=== PATIENT | male | born 1955 | race American Indian/Alaskan Native ===

== ENCOUNTER 2016-11-09 09:20 | Day surgery (SDC) | payer MEDICARE ==
[2016-11-09 09:58] VITALS: BP 170/97
[2016-11-09 10:35] LABS: Hematocrit 30.6 % (35.5-45.6); Mean Corpuscular HGB Conc 33 % (32-34); Mean Corpuscular Hemoglobin 27 pg (28-32); Mean Corpuscular Volume 83 fl (84-94); Red Blood Count 3.68 M/mm3 (3.65-5.03); Red Cell Distribution Width 17.2 % (13.2-15.2)
[2016-11-09 10:46] LABS: INR 1.56 (0.87-1.13); Partial Thromboplastin Time 28.7 Sec. (24.2-36.6)
[2016-11-09 10:58] LABS: Platelet Count 34 K/mm3 (140-440)
--- NOTE | 2016-11-09 12:15 | Ultrasound Report ---
ULTRASOUND ABDOMEN LIMITED HISTORY: Cirrhosis, ascites. FINDINGS: Transabdominal ultrasound was performed in all 4 quadrants of the abdomen. There is trace ascites in the left lower quadrant. No collection large enough for ultrasound guided paracentesis is demonstrated. The liver is partially imaged and appears echogenic consistent with cirrhosis. IMPRESSION: Trace ascites. No collection large enough for ultrasound guided paracentesis.
[2016-11-09 12:16] LABS: Anisocytosis 1+; Blastocytes % (Manual) 0 %; Diff Status Complete; Hypochromasia 1+; Platelet Estimate Appears Decreased
== END 2016-11-09 11:53 | disposition home or self-care (01) ==
LOC: OPU 09:20
PROVIDERS: ATTEND Internal Medicine Gastroenterology
DX: K74.60 Unspecified cirrhosis of liver (principal); R18.8 Other ascites
CPT/HCPCS: 36415; 76705; 85007; 85025; 85610; 85730

== ENCOUNTER 2016-11-15 12:42 | Outpatient (CLI) | payer MEDICARE ==
[2016-11-15 13:24] LABS: Albumin/Globulin Ratio 0.9 %; BUN/Creatinine Ratio 8.66; Bilirubin,Total 1.2 mg/dL (0.1-1.2); Calcium 7.8 mg/dL (8.4-10.2); Chloride 105.9 mmol/L (98-107); Potassium 4.1 mmol/L (3.6-5.0); Total Protein 6.3 g/dL (6.3-8.2)
== END 2016-11-15 12:43 | disposition home or self-care (01) ==
LOC: LAB 12:42
PROVIDERS: ATTEND Internal Medicine Gastroenterology
DX: B20 Human immunodeficiency virus [HIV] disease (principal); B18.2 Chronic viral hepatitis C
CPT/HCPCS: 36415; 80053

== ENCOUNTER 2016-11-20 14:08 | Outpatient (CLI) | payer MEDICARE ==
--- NOTE | 2016-11-20 16:51 | Cat Scan Report ---
CT ABDOMEN AND PELVIS WITH CONTRAST INDICATION: Cirrhosis of liver. COMPARISON: 06/03/2015 CT. FINDINGS: Abdomen and pelvis CT performed following oral contrast and intravenous administration of 100 cc of Omnipaque 300. LUNG BASES: Mild cardiomegaly, small right middle lobe calcified granuloma with scarring and minimal coronary calcification again noted. Nonspecific distal esophageal wall thickening, not excluded for varices versus gastroesophageal reflux and/or hiatal hernia, amongst others. ABDOMEN: New small perihepatic ascites with some fluid also extending along the paracolic gutters noted. Cirrhosis, cholecystectomy clips, tiny splenic calcified granuloma and small nonobstructing bilateral renal calculi, the larger on the right approximately 5 mm on axial image 33, series 2 again noted. Spleen approximately 17 cm in length. Pancreas, adrenals, nonaneurysmal abdominal aorta with atherosclerotic calcifications and IVC remain within normal limits. Multiple mesenteric lymph nodes again noted measuring up to 1.7 x 0.8 cm, axial image 40, series 2 while the largest aortocaval lymph node is again approximately 1.4 cm, axial image 45. Opacified GI tract nonobstructive. Normal appendix. Diffuse wall thickening along the ascending colon now suspected despite suboptimal distention. Interval umbilical/supraumbilical ventral hernia mesh repair as well with approximately 8mm subcutaneous density noted at the superior aspect of this repair, axial image 48. PELVIS: Small simple pelvic ascites is also new. Pelvic lymph nodes are smaller/less prominent. Urinary bladder, seminal vesicles, prostate and rectosigmoid appear within normal limits. Numerous pelvic phleboliths. Fluid in the left inguinal canal hernia is new as on axial image 86, amongst others. Advanced bilateral hip degenerative changes again noted as also bony demineralization. Stable left groin surgical clip. CONCLUSION: 1. Small perihepatic and pelvic ascites is new since May 2015 in this patient with cirrhosis and portal hypertension again noted, as detailed above. 2. Diffuse ascending colon wall thickening/colitis without evidence of bowel obstruction. 3. Various other stable findings, including distal esophageal thickening, old healed granulomatous disease, cholecystectomy, nonobstructing bilateral nephrolithiasis, advanced bilateral hip degenerative changes and interval ventral hernia repair, amongst others, as detailed above. I phoned the above results to Dr. Cardoso, 4:45 PM, 11/20/2016. Thank you for the opportunity to participate in this patient's care.
== END 2016-11-20 14:09 | disposition home or self-care (01) ==
LOC: CT 14:08
PROVIDERS: ATTEND Surgery
DX: N20.0 Calculus of kidney (principal); I51.7 Cardiomegaly; I25.10 Atherosclerotic heart disease of native coronary artery without angina pectoris; K21.9 Gastro-esophageal reflux disease without esophagitis; K44.9 Diaphragmatic hernia without obstruction or gangrene; K40.90 Unilateral inguinal hernia, without obstruction or gangrene, not specified as recurrent; R18.8 Other ascites; I87.8 Other specified disorders of veins; Z90.49 Acquired absence of other specified parts of digestive tract
CPT/HCPCS: 74177; Q9967

== ENCOUNTER 2016-12-26 10:21 | Day surgery (SDC) | payer MEDICARE ==
[~2016-12-26 10:21] MED LIST: LACTATED RINGERS 1,000 ML IV SCH; PEPCID PO NR; VERSED IV NR
[2016-12-26] MEDS ORDERED: DIPRIVAN 10 MG/ML IV ONE ×2 (10:40→12:05)
[2016-12-26] MEDS ORDERED: DILAUDID ONE (10:40)
[2016-12-26] MEDS ORDERED: ANCEF/STERILE WATER 2 GM/20 ML IV NR (11:00)
[2016-12-26 11:20] LABS: Hematocrit 33.1 % (35.5-45.6); Hemoglobin 10.6 gm/dl (11.8-15.2); Mean Corpuscular HGB Conc 32 % (32-34); Mean Corpuscular Volume 80 fl (84-94); Red Blood Count 4.13 M/mm3 (3.65-5.03); Red Cell Distribution Width 18.4 % (13.2-15.2)
[2016-12-26 11:22] LABS: Mean Corpuscular Hemoglobin 26 pg (28-32); White Blood Count 2.3 K/mm3 (4.5-11.0)
[2016-12-26 11:30] LABS: INR 1.45 (0.87-1.13)
[2016-12-26 11:34] LABS: Alanine Aminotransferase 27 units/L (7-56); Albumin 3.7 g/dL (3.9-5); Albumin/Globulin Ratio 1.2 %; Alkaline Phosphatase 115 units/L (35-129); Anion Gap 16 mmol/L; Bilirubin,Total 0.8 mg/dL (0.1-1.2); Blood Urea Nitrogen 13 mg/dL (9-20); Calcium 8.4 mg/dL (8.4-10.2); Carbon Dioxide 24 mmol/L (22-30); Chloride 103.2 mmol/L (98-107); Glucose 94 mg/dL (75-100); Potassium 3.5 mmol/L (3.6-5.0); Sodium 140 mmol/L (137-145); Total Protein 6.8 g/dL (6.3-8.2)
[2016-12-26 12:10] LABS: Anisocytosis 1+; Basophils % (Manual) 0 % (0.0-1.8); Blastocytes % (Manual) 0 %; Hypochromasia 1+
[2016-12-26 12:11] LABS: Diff Status Complete
[2016-12-26 12:24] LABS: Platelet Count 34 K/mm3 (140-440)
[2016-12-26 15:36] VITALS: BP 131/84
--- NOTE | 2016-12-27 01:17 | Discharge Summary ---
This is a well case to me, is a known case of HIV positive and diabetes. He presented because of left inguinal hernia. I saw him about 3-4 weeks ago because of Left ing pain and a soft mass. The patient came today for definitive surgical intervention. PHYSICAL EXAMINATION: GENERAL: Showed a well-preserved black male. He was in no distress. HEAD AND NECK: Negative. CHEST: Clear. HEART: Sounds normal to me. ABDOMEN: Soft and benign. Evidence of left inguinal soft tissue mass that is easily reducible that measured about 8 x 4 x 4 cm. EXTREMITIES: Showed no evidence of any edema. IMPRESSION: Left inguinal hernia. I believe this needs to be addressed surgically; however, we did on him some workup. His white count was 2.6 and his platelet was 34,000. His INR is 1.45. With the above-mentioned findings and the fact that he is HIV positive, my recommendation was to cancel the operation and have him to see pizza cook. We will give him _ phone number to see him sometime tomorrow or whenever he is cleared who will do his surgery. surgery will be done as an elective operation to call me. JOB# [id number] [facility]
== END 2016-12-26 13:04 | disposition home or self-care (01) ==
LOC: OR 10:21
PROVIDERS: ATTEND Surgery
DX: K40.90 Unilateral inguinal hernia, without obstruction or gangrene, not specified as recurrent (principal); Z53.8 Procedure and treatment not carried out for other reasons; E11.9 Type 2 diabetes mellitus without complications; F17.210 Nicotine dependence, cigarettes, uncomplicated
CPT/HCPCS: 36415; 80053; 85007; 85025; 85610; J2250; J2704; J7120; J0690; J1170

== ENCOUNTER 2017-01-30 10:04 | Day surgery (SDC) | payer MEDICARE ==
[~2017-01-30 10:04] MED LIST changes: -LACTATED RINGERS 1,000 ML IV SCH; +NACL 0.9% 1000 ML 1,000 ML IV SCH
[2017-01-30] MEDS ORDERED: ANCEF/STERILE WATER 2 GM/20 ML IV NR (11:00)
[2017-01-30] MEDS ORDERED: DIPRIVAN 10 MG/ML IV ONE (11:13)
[2017-01-30] MEDS ORDERED: ROBINUL ONE (11:14)
[2017-01-30] MEDS ORDERED: NEOSTIGMINE ONE (11:14)
[2017-01-30] MEDS ORDERED: XYLOCAINE MPF 2% ONE (11:14)
[2017-01-30] MEDS ORDERED: DILAUDID ONE (11:14)
[2017-01-30] MEDS ORDERED: ZEMURON IV ONE (11:15)
--- NOTE | 2017-01-30 11:23 | Anesthesia Day of Surgery ---
Anesthesia Day of Surgery - Day of Surgery Patient Examined: Yes Patient H&P Reviewed: Yes Patient is NPO: Yes Beta Blockers: No Cardiac Clearance: No Pulmonary Clearance: No
--- NOTE | 2017-01-30 11:25 | Anesthesia Consultation ---
Anesthesia Consult and Med Hx Date of service: 01/30/17 - Airway Anesthetic Teeth Evaluation: Poor ROM Head & Neck: Adequate Mental/Hyoid Distance: Adequate Mallampati Class: Class II Intubation Access Assessment: Probably Good - Pulmonary Exam CTA: Yes - Cardiac Exam Cardiac Exam: RRR - Pre-Operative Health Status ASA Pre-Surgery Classification: ASA4 - Pulmonary Hx Smoking: Yes (1/2 PPD X 50 YRS) Hx Sleep Apnea: Yes (no longer uses cpap) - Cardiovascular System Hx Hypertension: Yes Hx Cardia Arrhythmia: No - Central Nervous System Hx Psychiatric Problems: Yes - Gastrointestinal Hx Gastroesophageal Reflux Disease: Yes (Mild) - Endocrine Hx Cirrhosis: Yes Hx Liver Disease: Yes (CIRRHOSIS HEP B HEP C) Hx Non-Insulin Dependent Diabetes: No Hx Thyroid Disease: No - Hematic Hx Anemia: Yes - Other Systems Hx Alcohol Use: Yes (ETOH ABUSE/QUIT 1 1/2 YRS AGO) Hx Substance Use: Yes (marijuana) Hx Cancer: No - Additional Comments Anesthesia Medical History Comments: AIDS with hx decres plts---need repeat labs
[2017-01-30 12:08] LABS: Eosinophils % (Auto) 9.1 % (0.0-4.3)
[2017-01-30 12:25] LABS: Hematocrit 37.9 % (35.5-45.6); Hemoglobin 12.1 gm/dl (11.8-15.2); Mean Corpuscular HGB Conc 32 % (32-34); Mean Corpuscular Hemoglobin 26 pg (28-32); Mean Corpuscular Volume 81 fl (84-94); Platelet Count 53 K/mm3 (140-440); Red Blood Count 4.66 M/mm3 (3.65-5.03); Red Cell Distribution Width 18.6 % (13.2-15.2); White Blood Count 3.8 K/mm3 (4.5-11.0)
[2017-01-30 12:26] LABS: Basophils % (Auto) 1.3 % (0.0-1.8); Diff Status Complete
[2017-01-30 12:31] LABS: Albumin 3.9 g/dL (3.9-5); Albumin/Globulin Ratio 1.1 %; BUN/Creatinine Ratio 8.66; Bilirubin,Total 1.1 mg/dL (0.1-1.2); Calcium 8.8 mg/dL (8.4-10.2); Chloride 103.3 mmol/L (98-107); Total Protein 7.3 g/dL (6.3-8.2)
[2017-01-30 12:35] LABS: INR 1.6 (0.87-1.13)
[2017-01-30 12:36] LABS: Partial Thromboplastin Time 27.7 Sec. (24.2-36.6)
[2017-01-30 12:59] LABS: Potassium 4.2 mmol/L (3.6-5.0)
[2017-01-30 13:00] LABS: Bilirubin,Direct 0.3 mg/dL (0-0.2); Bilirubin,Indirect 0.8 mg/dL
[2017-01-30 13:43] VITALS: BP 144/90
--- NOTE | 2017-01-31 02:46 | Consultation ---
HISTORY OF PRESENT ILLNESS: This man is very well known case to me. He was in this hospital about 2 weeks ago for repair of left inguinal hernia. He had an umbilical hernia repaired laparoscopically about 6 months ago. He is a known case of COPD. He does smoke about 1 pack a day. He has been having some pain to the left inguinal area and was found to have a hernia there about 3 x 3 cm. He was admitted 10 days ago for repair of the hernia; however, because of the platelets being low in the range of 30,000-40,000, recommendation was not to do it. At this time, he came for definitive surgical intervention. His white count was 3.8, hematocrit 37. His potassium 4.2, BUN was 13. Total bilirubin was 1.1. The alkaline phosphatase is okay. Noted, however, that his INR is 1.6 with a proTime of 19 and PTT is 27.7. I had a lengthy talk with the patient as to the operation. I believe, surgically speaking, the advice is not to do surgery on him with the elevated INR and the platelets being on the low side, 53 only. Although he saw Dr. Ayush Pritchard recently. I would like him to see him again, ____ okay to do his surgery. He has some pain in the area. To me the hernia is not that large, about 3 x 3 cm and looked soft to me. I will rather wait to make sure that everything is fine before intervention. Add to this that he has COPD and this would affect the healing process as well. JOB# [id number] [facility]
== END 2017-01-30 13:22 | disposition home or self-care (01) ==
LOC: OR 10:04
PROVIDERS: ATTEND Surgery
DX: K40.90 Unilateral inguinal hernia, without obstruction or gangrene, not specified as recurrent (principal); Z53.8 Procedure and treatment not carried out for other reasons; J44.9 Chronic obstructive pulmonary disease, unspecified; F17.210 Nicotine dependence, cigarettes, uncomplicated; I10 Essential (primary) hypertension; K21.9 Gastro-esophageal reflux disease without esophagitis; B19.20 Unspecified viral hepatitis C without hepatic coma; D64.9 Anemia, unspecified; F12.90 Cannabis use, unspecified, uncomplicated; Z72.89 Other problems related to lifestyle
CPT/HCPCS: 36415; 80048; 80074; 85025; 85610; 85730; J1170; J2250; J2704; J7030; J0690; J2710

== ENCOUNTER 2017-05-21 13:01 | Outpatient (CLI) | payer MEDICARE ==
[2017-05-21 13:27] LABS: Basophils % (Auto) 0.1 % (0.0-1.8); Eosinophils % (Auto) 1.3 % (0.0-4.3); Hematocrit 37.5 % (35.5-45.6); Hemoglobin 12.4 gm/dl (11.8-15.2); Mean Corpuscular HGB Conc 33 % (32-34); Mean Corpuscular Hemoglobin 29 pg (28-32); Mean Corpuscular Volume 88 fl (84-94); Red Blood Count 4.27 M/mm3 (3.65-5.03); Red Cell Distribution Width 18.9 % (13.2-15.2); White Blood Count 13.3 K/mm3 (4.5-11.0)
[2017-05-21 13:28] LABS: Platelet Count 99 K/mm3 (140-440)
[2017-05-21 13:43] LABS: INR 1.53 (0.87-1.13)
[2017-05-21 13:47] LABS: Albumin 3.8 g/dL (3.9-5); Albumin/Globulin Ratio 0.9 %; BUN/Creatinine Ratio 9.33; Chloride 94.1 mmol/L (98-107); Total Protein 8.1 g/dL (6.3-8.2)
== END 2017-05-21 13:02 | disposition home or self-care (01) ==
LOC: LAB 13:01
DX: B20 Human immunodeficiency virus [HIV] disease (principal); D64.9 Anemia, unspecified; K74.60 Unspecified cirrhosis of liver; I10 Essential (primary) hypertension; F32.9 Major depressive disorder, single episode, unspecified; F41.9 Anxiety disorder, unspecified; F17.200 Nicotine dependence, unspecified, uncomplicated
CPT/HCPCS: 36415; 80053; 82607; 82728; 82747; 83550; 84439; 84443; 85025; 85610